=== PATIENT | female | born 1950 | race Caucasian/White ===

== ENCOUNTER 2018-04-27 19:38 | Emergency (ER) | payer BC, MEDICARE, OTHER ==
[~2018-04-27] VITALS: Ht 154.9 cm; Wt 54.4 kg
[2018-04-27] MEDS ORDERED: ALPRAZOLAM (20:00)
[2018-04-27] MEDS ORDERED: ESTRADIOL 0.05 MG (20:00)
[2018-04-27] MEDS ORDERED: ASPI81TA31 PO (20:01)
[2018-04-27] MEDS ORDERED: FLUT16SP2 NS (20:01)
[2018-04-27] MEDS ORDERED: IV NORMAL SALINE 1000 ML BAG IV ONE (20:15)
[2018-04-27 20:27] LABS: BASOPHILS % (AUTO) 0.2 % (0.0-2.0); EOSINOPHILS % (AUTO) 0.1 % (0.0-7.0); HEMATOCRIT 41.5 % (31.2-41.9); HEMOGLOBIN 14.2 g/dL (10.9-14.3); LYMPHOCYTES # (AUTO) 0.3 K/uL (20.0-40.0); LYMPHOCYTES % (AUTO) 13.6 % (20.5-51.5); MEAN CORPUSCULAR HEMOGLOBIN 30.8 uug (24.7-32.8); MEAN CORPUSCULAR HGB CONC 34 g/dL (32.3-35.6); MEAN CORPUSCULAR VOLUME 89.9 fL (75.5-95.3); MONOCYTES # (AUTO) 0.1 K/uL (2.0-10.0); MONOCYTES % (AUTO) 6.3 % (0.0-11.0); NEUTROPHILS # (AUTO) 1.7 K/uL (1.8-8.9); NEUTROPHILS % (AUTO) 79.8 % (38.5-71.5); PLATELET COUNT (AUTO) 215 K/uL (179-408); RED BLOOD CELL COUNT(AUTO) 4.61 MIL/uL (3.63-4.92); WHITE BLOOD COUNT (AUTO) 2.1 K/uL (3.8-11.8)
[2018-04-27 20:34] LABS: CREATININE 0.7 mg/dL (0.6-1.3); POTASSIUM 3.6 mmol/L (3.5-5.1)
[2018-04-27 20:40] LABS: BILIRUBIN,DIRECT 0.2 mg/dL (0.0-0.2); BILIRUBIN,TOTAL 0.8 mg/dL (0.2-1.0); TOTAL PROTEIN, SERUM 7.5 g/dL (6.4-8.2)
[2018-04-27 21:01] LABS: BAND % (MANUAL) 34 % (0-10); LYMPHOCYTES % (MANUAL) 18 % (20-40); MONOCYTES % (MANUAL) 8 % (2-10); NEUTROPHILS % (MANUAL) 40 % (42-75)
[2018-04-27] MEDS ORDERED: CIPROFLOXACIN HCL 250 MG TABLET ONE (21:12)
[2018-04-27] MEDS ORDERED: CIPROFLOXACIN HCL 250 MG TABLET PO ONE (21:15)
--- NOTE | 2018-04-27 21:27 | NUR ---
IV removed. Catheter intact and site benign. Pressure and 4x4 gauze applied to site. No bleeding noted.
--- NOTE | 2018-04-27 21:29 | NUR ---
Patient discharged to home in stable conditon. Written and verbal after care instructions given. Patient verbalizes understanding of instructions. Pt ambulated out of ER w family member w stable gait. All belongings w pt. Pt states she feels better.
[2018-04-27 21:36] VITALS: BP 114/73
== END 2018-04-27 21:37 | disposition home or self-care (01) ==
LOC: ER 19:39
DX: R19.7 Diarrhea, unspecified (principal); Z79.51 Long term (current) use of inhaled steroids; Z79.82 Long term (current) use of aspirin; Z79.899 Other long term (current) drug therapy
CPT/HCPCS: 36415; 83690; 85025; A4663; J7030